=== PATIENT | male | born 1960 | race Hispanic/Latino ===

== ENCOUNTER → 2022-08-09 | Outpatient (CLI) | payer OTHER ==
[~2022-08-09] MED LIST: ALBU0.63 IH; AZIT500T4 PO; ESCI20TA38 PO; LORA-868 PO; TAMS0.4C32 PO
== END | disposition home or self-care (01) ==
LOC: SHCH 10:59
PROVIDERS: ATTEND Internal Medicine Cardiovascular Disease
DX: R01.1 Cardiac murmur, unspecified (principal); I51.89 Other ill-defined heart diseases; I70.213 Atherosclerosis of native arteries of extremities with intermittent claudication, bilateral legs
CPT/HCPCS: 93306

== ENCOUNTER 2023-02-05 19:19 | Emergency (ER) | payer OTHER ==
[~2023-02-05] VITALS: Ht 172.7 cm; Wt 72.6 kg
[2023-02-05] MEDS ORDERED: KETOROLAC 60 MG VIAL (30MG/ML) IM ONE (21:30)
[2023-02-05] MEDS ORDERED: HYDROCODONE/ACETAMINOPHEN 5/325 MG TAB PO ONE (21:30)
[2023-02-05 21:44] VITALS: BP 166/84; PULSE 72; RESP 16; O2SAT 100
[2023-02-05] MEDS ORDERED: PANT20TA18 PO (21:44)
[2023-02-05] MEDS ORDERED: ACET-2079 PO (21:44)
[2023-02-05] MEDS ORDERED: NAPR-1023 PO (21:44)
[2023-02-05] MEDS ORDERED: METH4TAB3 PO (21:44)
== END 2023-02-05 21:51 | disposition home or self-care (01) ==
LOC: EDH 19:19
DX: M25.561 Pain in right knee (principal); M25.562 Pain in left knee; M25.571 Pain in right ankle and joints of right foot; M25.572 Pain in left ankle and joints of left foot; I10 Essential (primary) hypertension; M06.9 Rheumatoid arthritis, unspecified; E11.9 Type 2 diabetes mellitus without complications; E78.00 Pure hypercholesterolemia, unspecified; Z59.7 Insufficient social insurance and welfare support
CPT/HCPCS: 96372; 99283; J1885

== ENCOUNTER 2023-02-27 17:21 | Emergency (ER) | payer OTHER ==
[~2023-02-27] VITALS: Ht 175.3 cm; Wt 70.3 kg
[~2023-02-27 17:21] MED LIST changes: +ACET-2079 PO; +METH4TAB3 PO; +NAPR-1023 PO; +PANT20TA18 PO
[2023-02-27 17:52] LABS: BASOPHILS # (AUTO) 0.03 K/uL (0.00-0.20); BASOPHILS % (AUTO) 1.2 % (0.0-5.0); EOSINOPHILS # (AUTO) 0.02 K/uL (0.00-0.70); EOSINOPHILS % (AUTO) 0.8 % (0.0-8.0); HEMATOCRIT 35.9 % (42-54); LYMPHOCYTES # (AUTO) 1.4 K/uL (1.0-4.8); LYMPHOCYTES % (AUTO) 56.6 % (21.0-51.0); MEAN CORPUSCULAR HEMOGLOBIN 28.4 pg (27.0-33.0); MEAN CORPUSCULAR HGB CONC 34.3 g/dL (32.0-36.0); MEAN CORPUSCULAR VOLUME 82.9 fL (79-99); MONOCYTES # (AUTO) 0.6 K/uL (0.1-1.0); NEUTROPHILS # (AUTO) 0.5 K/uL (1.8-7.7); NEUTROPHILS % (AUTO) 18.4 % (40.0-77.0); PLATELET COUNT (AUTO) 198 K/uL (130-400); RED BLOOD CELL COUNT(AUTO) 4.33 MIL/uL (4.50-6.20); RED CELL DISTRIBUTION WIDTH 15.2 % (11.0-15.5); WHITE BLOOD COUNT (AUTO) 2.4 K/uL (4.8-10.8)
[2023-02-27 18:22] LABS: ALBUMIN 3.3 g/dL (3.5-5.0); BILIRUBIN,TOTAL 0.8 mg/dL (0.2-1.0); CREATININE 1.2 mg/dL (0.5-1.5); POTASSIUM 4.2 mmol/L (3.5-5.1); TOTAL PROTEIN, SERUM 8.1 g/dL (6.0-8.3)
[2023-02-27 18:32] LABS: BAND NEUTROPHILS % (MANUAL) 9 % (0-2); LYMPHOCYTES % (MANUAL) 46 % (22-44); MAN.DIFF COMMENT-IMPRESSION MANUAL DIFFERENTIAL; MONOCYTES % (MANUAL) 18 % (2-9); REACTIVE LYMPHOCYTES 9 % (0-0); SEGMENTED NEUTROPHILS % 18 % (40-70); TOTAL CELLS COUNTED 100
[2023-02-27] MEDS ORDERED: 0.9%NACL 1000ML 1,000 ML IV ONE (19:00)
[2023-02-27] MEDS ORDERED: INSULIN HUMULIN R 100 UNIT/ML 3ML IV ONE (19:00)
[2023-02-27 19:41] LABS: ABG HCO3 22.4 mmol/L (21.0-28.0); ABG OXYGEN SATURATION 97.4 % (95.0-99.0); ABG PCO2 33 mmHg (35-48); ABG PH 7.447 (7.35-7.450); CARBON MONOXIDE 1.1; DEVICE COMMENT RN; HHb 2.6; PO2, ARTERIAL BG 94.3 mmHg (83.0-108.0); VENT MODE, BG RR RA (ROOM AIR)
[2023-02-27 20:35] VITALS: BP 140/65; PULSE 78; RESP 18; O2SAT 97
[2023-02-27 20:49] LABS: ADD UA MICROSCOPIC YES; APPEARANCE,URINE CLEAR (CLEAR); BILIRUBIN,URINE NEGATIVE (NEGATIVE); COLOR,URINE LIGHT-YELLOW (YELLOW); GLUCOSE, URINE (UA) >=1000 mg/dL (NEGATIVE); KETONES,URINE NEGATIVE (NEGATIVE); LEUKOCYTE ESTERASE ,URINE NEGATIVE Leu/uL (NEGATIVE); NITRATE,URINE NEGATIVE (NEGATIVE); OCCULT BLOOD,URINE NEGATIVE (NEGATIVE); PH,URINE 5.5 (5.0-8.0); PROTEIN,URINE NEGATIVE (NEGATIVE); UROBILINOGEN,URINE 0.2 mg/dL (0.2-1.0)
[2023-02-27 20:51] LABS: MUCUS,URINE RARE LPF (None Seen); RBC,URINE 0-1 /HPF (0-1); WBC,URINE 0-1 /HPF (0-1)
[2023-02-27 20:52] LABS: AMPHET/METH SCREEN,URINE NEGATIVE (NEGATIVE); BARBITURATE SCREEN, URINE NEGATIVE (NEGATIVE); BENZODIAZEPINES SCREEN,URINE NEGATIVE (NEGATIVE); CANNABINOID SCREEN,URINE NEGATIVE (NEGATIVE); COCAINE SCREEN,URINE NEGATIVE (NEGATIVE); OPIATE SCREEN,URINE NEGATIVE (NEGATIVE); PHENCYCLIDINE SCREEN,URINE NEGATIVE (NEGATIVE)
== END 2023-02-27 21:32 | disposition home or self-care (01) ==
LOC: EDH 17:21
DX: E11.65 Type 2 diabetes mellitus with hyperglycemia (principal); D70.8 Other neutropenia; M35.9 Systemic involvement of connective tissue, unspecified; I10 Essential (primary) hypertension; E78.00 Pure hypercholesterolemia, unspecified; M19.90 Unspecified osteoarthritis, unspecified site; Z79.899 Other long term (current) drug therapy; Z98.890 Other specified postprocedural states
CPT/HCPCS: 99283; 96360; 82947; 80053; 82803; 80305; 85025; 83605 ×2; 82010; 36415; 36600; 96372; 82435; 84132; 84295; 85018; 81001; 82948; J1815; J7030

== ENCOUNTER 2023-03-27 09:05 | Emergency (ER) | payer OTHER ==
[~2023-03-27] VITALS: Ht 175.3 cm; Wt 70.3 kg
[2023-03-27] MEDS ORDERED: LACTATED RINGERS 1000ML 1,000 ML IV ONE (09:30)
[2023-03-27 09:52] LABS: BASOPHILS # (AUTO) 0.01 K/uL (0.00-0.20); BASOPHILS % (AUTO) 0.3 % (0.0-5.0); EOSINOPHILS # (AUTO) 0.02 K/uL (0.00-0.70); EOSINOPHILS % (AUTO) 0.5 % (0.0-8.0); HEMATOCRIT 31.7 % (42-54); IMMATURE GRANULOCYTE ABSOLUTE 0.02 K/uL (0-1); LYMPHOCYTES # (AUTO) 0.8 K/uL (1.0-4.8); LYMPHOCYTES % (AUTO) 18.9 % (21.0-51.0); MEAN CORPUSCULAR HGB CONC 33.8 g/dL (32.0-36.0); MONOCYTES # (AUTO) 0.4 K/uL (0.1-1.0); MONOCYTES % (AUTO) 9.6 % (3.0-13.0); NEUTROPHILS # (AUTO) 2.8 K/uL (1.8-7.7); NEUTROPHILS % (AUTO) 70.2 % (40.0-77.0); PLATELET COUNT (AUTO) 272 K/uL (130-400); RED BLOOD CELL COUNT(AUTO) 3.82 MIL/uL (4.50-6.20); RED CELL DISTRIBUTION WIDTH 14.7 % (11.0-15.5)
[2023-03-27 10:15] LABS: CREATININE 0.9 mg/dL (0.5-1.5); POTASSIUM 3.7 mmol/L (3.5-5.1)
[2023-03-27 10:20] LABS: ALBUMIN 2.7 g/dL (3.5-5.0); BILIRUBIN,TOTAL 0.4 mg/dL (0.2-1.0); TOTAL PROTEIN, SERUM 7.8 g/dL (6.0-8.3)
[2023-03-27 10:51] LABS: AMPHET/METH SCREEN,URINE NEGATIVE (NEGATIVE); BARBITURATE SCREEN, URINE NEGATIVE (NEGATIVE); BENZODIAZEPINES SCREEN,URINE NEGATIVE (NEGATIVE); CANNABINOID SCREEN,URINE NEGATIVE (NEGATIVE); COCAINE SCREEN,URINE NEGATIVE (NEGATIVE); OPIATE SCREEN,URINE POSITIVE (NEGATIVE); PHENCYCLIDINE SCREEN,URINE NEGATIVE (NEGATIVE)
[2023-03-27 11:39] VITALS: BP 144/70; PULSE 89; RESP 16; O2SAT 100
== END 2023-03-27 11:40 | disposition home or self-care (01) ==
LOC: EDH 09:05
DX: M19.90 Unspecified osteoarthritis, unspecified site (principal); F19.10 Other psychoactive substance abuse, uncomplicated; E11.9 Type 2 diabetes mellitus without complications; I10 Essential (primary) hypertension; Z79.52 Long term (current) use of systemic steroids; Z79.899 Other long term (current) drug therapy
CPT/HCPCS: 36415; 71045; 80053; 80305; 82550; 84484; 85025; 93005